=== PATIENT | female | born 1985 | race African-American/Black ===

== ENCOUNTER 2022-08-15 10:40 | Day surgery (SDC) | payer OTHER ==
[~2022-08-15] VITALS: Ht 160 cm; Wt 59.1 kg
[~2022-08-15 10:40] MED LIST: CYCL5TAB PO; FAMO1TAB11 PO; NS 1,000 ML IV ONE; OMEP-173 PO; PREN1TAB26 PO
[2022-08-15] MEDS ORDERED: fentaNYL 100 MCG/2 ML INJECTION As Ordered ONE (11:58)
[2022-08-15] MEDS ORDERED: LIDOCAINE 2% 100MG/5ML SDV (FOR ANES.) As Ordered ONE (11:58)
[2022-08-15] MEDS ORDERED: propofoL 200 MG/20 ML VIAL As Ordered ONE (11:58)
[2022-08-15 13:10] VITALS: BP 124/66
== END 2022-08-15 13:19 | disposition home or self-care (01) ==
LOC: M OPP 10:40
PROVIDERS: ATTEND Internal Medicine Gastroenterology
DX: K29.50 Unspecified chronic gastritis without bleeding (principal); R12 Heartburn; Z79.899 Other long term (current) drug therapy
CPT/HCPCS: 43239; 88305; J3010